=== PATIENT | male | born 1975 | race Caucasian/White ===

== ENCOUNTER 2019-03-09 10:34 | Emergency (ER) | payer SELFPAY ==
[2019-03-09 10:39] VITALS: BP 139/84; PULSE 87; RESP 18; TEMP 36.8; O2SAT 99
--- NOTE | 2019-03-09 11:10 | W.ED.GENAD ---
Discharge Plan Disposition Patient Disposition: HOME Condition: Stable Discharge Details Chief Complaint: Abd Prob Clinical Impression: Peptic ulcer, Elevated lipase Primary Care Provider: None,None ED Provider: Mac Man Home Meds and New Rx's Prescriptions: New omeprazole 20 mg capsule,delayed release(DR/EC) 20 mg PO DAILY Qty: 30 RF: 0 Discharge Instructions Instructions: Peptic Ulcer (ED) Additional Instructions: Feel free to return to the emergency department for any new or worsening symptoms. Otherwise take medication as prescribed and follow-up with primary care provider for reassessment and any further testing as needed. Referrals: Primary Care Provider [Outside] (Primary care office will call you to arrange follow-up appointment) Discharge Data Discharge Date/Time-TO BE ENTERED AT DEPARTURE: 03/09/19 14:11 Medical Decision Making Patient presenting to the emergency department for chief complaint of abdominal pain. Patient states that he has had this intermittently for years and has had epigastric and periumbilical abdominal pain that seems to come and go. During episodes of flareup he states that he has pain approximately 30 minutes after eating, heartburn, and some esophageal irritation. Today he states his pain is mild at 4 out of 10. Patient denies any fever chills, weight loss, rectal bleeding. Physical exam shows mild tenderness to epigastrium otherwise negative Lind sign, no abdominal distention, normal active bowel sounds, no CVA tenderness and otherwise unremarkable exam. Plan to check labs including lipase. Review of labs show normal CBC, normal CMP except for mildly elevated glucose, and lipase of 781. Patient adamantly denies any alcohol intake but does state significant cigarette smoking and caffeine use. Given elevated lipase plan to do ultrasound imaging of the abdomen.. Review of preliminary registered respiratory technician report shows no abnormalities noted. Did discuss with patient possible CT imaging given elevated lipase but I do not think he has pancreatitis at this time. After shared decision-making was utilized in full discussion of possible reasons for elevated lipase patient stated that he would prefer to follow-up with primary care, have reassessment of his labs, or return for new or worsening symptoms. Given high suspicion for peptic ulcer disease given duration of symptoms and history I did place patient on omeprazole daily to see if this helps. Close return precautions were discussed with patient. Patient does not have primary care provider so he is placed upon care management list to arrange this appointment preferably in the next week. After discussion of diagnosis and plan of care patient has no further needs, questions, or concerns and states clear understanding to return to the emergency department for any worsening symptoms. HPI General Mode of arrival: ambulatory. Date/Time Provider Initiated Documentation: 03/09/19 10:39. Limitations to Documentation: no limitations. Information obtained by: patient and RN notes reviewed. History of Present Illness described as moderate, with intensity rated at 4. Quality is described as aching and sharp, and is localized to the abdomen (Epigastric and periumbilical). Patient started experiencing this year(s) (2) and it has been intermittent. No relieving factors improve symptom(s), Eating worsens symptoms . Patient did receive the following treatments prior to arrival, other (tums) Related Data Home Medications Medication Instructions Recorded Confirmed omeprazole 20 mg PO DAILY #30 cap 03/09/19 Previous Rx's Medication Instructions Recorded omeprazole 20 mg PO DAILY #30 cap 03/09/19 Allergies Allergy/AdvReac Type Severity Reaction Status Date / Time No Known Allergies Allergy Unverified 12/13/16 00:48 General Stated Complaint: Abd Prob FILIBERTO: 3 Review of Systems Constitutional Denies chills, Denies fever(s) and Denies poor appetite Cardiovascular Denies chest pain and Denies dyspnea Respiratory Denies dyspnea Gastrointestinal Reports as per HPI, Reports abdominal pain, Denies melena, Denies hematochezia, Denies change in bowel habits, Denies constipation, Reports heartburn, Denies diarrhea, Reports nausea and Reports vomiting (Occasional bile ) Genitourinary Denies hematuria, Denies difficulty urinating, Denies dysuria and Denies penile discharge Integumentary/Breasts Denies rash [facility] Surgical History History of appendectomy (Chronic) Social History Smoking/Tobacco Use Status: Current every day Tobacco Type: cigarettes Alcohol Intake: never Drug use: Daily Substance use type: marijuana Do you feel safe in your relationship?: No Exam Const General: cooperative Orientation: alert, awake and oriented x3 Resp Effort & Inspection: normal respiratory effort and able to speak in complete sentences Auscultation: clear to auscultation bilaterally Cardio Rate: regular rate Rhythm: regular rhythm Heart Sounds: S1 normal and S2 normal GI Palpation: soft, no hepatosplenomegaly, not firm, no guarding, no masses, no pulsatile masses, not rigid, no splenomegaly and tender in the epigastrum; not at McBurney's point, not periumbilically, Lind's sign negative, psoas sign negative, with no rebound tenderness and Rovsing's sign negative Auscultation: normal bowel sounds Back/Spine/Pelvis Back: no CVA tenderness Neuro General: alert, awake, oriented x3, gait normal and moves all extremities Course Vital Signs Temperature 36.8 C 03/09/19 10:39 Pulse 87 03/09/19 10:39 Respiratory Rate 18 03/09/19 10:39 Blood Pressure 139/84 03/09/19 10:39 Pulse Oximetry 99 03/09/19 10:39 Temperature 36.8 C 03/09/19 10:39 Temperature Source Skin 03/09/19 10:39 Pulse 87 03/09/19 10:39 Respiratory Rate 18 03/09/19 10:39 Respiratory Effort 03/09/19 10:42 Blood Pressure 139/84 03/09/19 10:39 Pulse Oximetry 99 03/09/19 10:39 Oxygen Delivery Method Room Air 03/09/19 10:39 Oxygen Flow Rate 0 03/09/19 10:39 Pain Level 4 03/09/19 10:39
--- NOTE | 2019-03-09 11:15 | ED.GENADUL_ITS ---
Discharge Plan Disposition Patient Disposition: HOME Condition: Stable Discharge Details Chief Complaint: Abd Prob Clinical Impression: Peptic ulcer, Elevated lipase Primary Care Provider: None,None ED Provider: Mac Man Home Meds and New Rx's Prescriptions: New omeprazole 20 mg capsule,delayed release(DR/EC) 20 mg PO DAILY Qty: 30 RF: 0 Discharge Instructions Instructions: Peptic Ulcer (ED) Additional Instructions: Feel free to return to the emergency department for any new or worsening symptoms. Otherwise take medication as prescribed and follow-up with primary care provider for reassessment and any further testing as needed. Referrals: Primary Care Provider [Outside] (Primary care office will call you to arrange follow-up appointment) Discharge Data Discharge Date/Time-TO BE ENTERED AT DEPARTURE: 03/09/19 14:11 Medical Decision Making Patient presenting to the emergency department for chief complaint of abdominal pain. Patient states that he has had this intermittently for years and has had epigastric and periumbilical abdominal pain that seems to come and go. During episodes of flareup he states that he has pain approximately 30 minutes after eating, heartburn, and some esophageal irritation. Today he states his pain is mild at 4 out of 10. Patient denies any fever chills, weight loss, rectal bleeding. Physical exam shows mild tenderness to epigastrium otherwise negative Lind sign, no abdominal distention, normal active bowel sounds, no CVA tenderness and otherwise unremarkable exam. Plan to check labs including lipase. Review of labs show normal CBC, normal CMP except for mildly elevated glucose, and lipase of 781. Patient adamantly denies any alcohol intake but does state significant cigarette smoking and caffeine use. Given elevated lipase plan to do ultrasound imaging of the abdomen.. Review of preliminary infrastructure technician report shows no abnormalities noted. Did discuss with patient possible CT imaging given elevated lipase but I do not think he has pancreatitis at this time. After shared decision-making was utilized in full discussion of possible reasons for elevated lipase patient stated that he would prefer to follow-up with primary care, have reassessment of his labs, or return for new or worsening symptoms. Given high suspicion for peptic ulcer disease given duration of symptoms and history I did place patient on omeprazole daily to see if this helps. Close return precautions were discussed with patient. Patient does not have primary care provider so he is placed upon care management list to arrange this appointment preferably in the next week. After discussion of diagnosis and plan of care patient has no further needs, questions, or concerns and states clear understanding to return to the emergency department for any worsening symptoms. HPI General Mode of arrival: ambulatory . Date/Time Provider Initiated Documentation: 03/09/19 10:39 . Limitations to Documentation: no limitations . Information obtained by: patient and RN notes reviewed . History of Present Illness described as moderate, with intensity rated at 4. Quality is described as aching and sharp, and is localized to the abdomen (Epigastric and periumbilical). Patient started experiencing this year(s) (2) and it has been intermittent. No relieving factors improve symptom(s), Eating worsens symptoms . Patient did receive the following treatments prior to arrival, other (tums) Related Data Home Medications Medication Instructions Recorded Confirmed omeprazole 20 mg PO DAILY #30 cap 03/09/19 Previous Rx's Medication Instructions Recorded omeprazole 20 mg PO DAILY #30 cap 03/09/19 Allergies Allergy/AdvReac Type Severity Reaction Status Date / Time No Known Allergies Allergy Unverified 12/13/16 00:48 General Stated Complaint: Abd Prob FILIBERTO: 3 Review of Systems Constitutional Denies chills, Denies fever(s) and Denies poor appetite Cardiovascular Denies chest pain and Denies dyspnea Respiratory Denies dyspnea Gastrointestinal Reports as per HPI, Reports abdominal pain, Denies melena, Denies hematochezia, Denies change in bowel habits, Denies constipation, Reports heartburn, Denies diarrhea, Reports nausea and Reports vomiting (Occasional bile ) Genitourinary Denies hematuria, Denies difficulty urinating, Denies dysuria and Denies penile discharge Integumentary/Breasts Denies rash [facility] Surgical History History of appendectomy (Chronic) Social History Smoking/Tobacco Use Status: Current every day Tobacco Type: cigarettes Alcohol Intake: never Drug use: Daily Substance use type: marijuana Do you feel safe in your relationship?: No Exam Const General: cooperative Orientation: alert, awake and oriented x3 Resp Effort & Inspection: normal respiratory effort and able to speak in complete sentences Auscultation: clear to auscultation bilaterally Cardio Rate: regular rate Rhythm: regular rhythm Heart Sounds: S1 normal and S2 normal GI Palpation: soft, no hepatosplenomegaly, not firm, no guarding, no masses, no pulsatile masses, not rigid, no splenomegaly and tender in the epigastrum; not at McBurney's point, not periumbilically, Lind's sign negative, psoas sign negative, with no rebound tenderness and Rovsing's sign negative Auscultation: normal bowel sounds Back/Spine/Pelvis Back: no CVA tenderness Neuro General: alert, awake, oriented x3, gait normal and moves all extremities Course Vital Signs Temperature 36.8 C 03/09/19 10:39 Pulse 87 03/09/19 10:39 Respiratory Rate 18 03/09/19 10:39 Blood Pressure 139/84 03/09/19 10:39 Pulse Oximetry 99 03/09/19 10:39 Temperature 36.8 C 03/09/19 10:39 Temperature Source Skin 03/09/19 10:39 Pulse 87 03/09/19 10:39 Respiratory Rate 18 03/09/19 10:39 Respiratory Effort 03/09/19 10:42 Blood Pressure 139/84 03/09/19 10:39 Pulse Oximetry 99 03/09/19 10:39 Oxygen Delivery Method Room Air 03/09/19 10:39 Oxygen Flow Rate 0 03/09/19 10:39 Pain Level 4 03/09/19 10:39
[2019-03-09 11:47] LABS: Abs Immature Grans 0.01 k/cumm (0.0-0.09); Absolute Basophil Count 0.05 k/cumm (0.0-0.2); Absolute Eosinophil Count 0.25 k/cumm (0.0-0.7); Absolute Lymphocyte Count 2.38 k/cumm (1.2-3.4); Absolute Monocyte Count 0.63 k/cumm (0.11-0.7); Absolute Neutrophil Count 5.31 k/cumm (1.2-6.7); Basophils % 0.6; Eosinophils % 2.9; HCT 48.3 % (40.0-50.0); HGB 16.6 g/dL (13.5-17.5); Immature Grans % 0.1; Lymphocytes % 27.6; Mean Corp. HGB Concentration 34.4 g/dL (32.0-36.0); Mean Corpuscular Hemoglobin 30.9 pg (27.0-33.0); Mean Corpuscular Volume 89.8 fL (80-95); Mean Platelet Volume 9.4 fL (8.0-11.0); Monocytes % 7.3; Neutrophils % 61.5; Platelet Count 275 x1000/uL (130-400); RBC 5.38 m/cumm (4.50-6.00); RBC Distribution Width 13.7 % (11.8-14.1); White Blood Cell Count 8.63 k/cumm (4.4-10.8)
[2019-03-09 12:11] LABS: ALT 49 U/L (12-78); AST 19 U/L (15-37); Albumin 3.9 g/dL (3.4-5.0); Alkaline Phosphatase 62 U/L (46-116); Anion Gap 6.8 mmol/L (3-11); BUN 13 mg/dL (7-18); Bilirubin, Total 0.4 mg/dL (0.2-1.0); CO2 30.2 mmol/L (21.0-32.0); CREATININE 0.96 mg/dL (0.70-1.30); Calcium 9.1 mg/dL (8.5-10.1); Chloride 102 mmol/L (98-107); Glucose 107 mg/dL (70-100); Lipase 781 U/L (73-393); Potassium 4.5 mmol/L (3.5-5.1); Sodium 139 mmol/L (136-145); Total Protein 7.5 g/dL (6.4-8.2)
--- NOTE | 2019-03-09 12:21 | DI.US_ITS ---
SYMPTOMS/DIAGNOSIS: EPIGASTRIC PAIN, ELEVATED LIPASE ABDOMINAL ULTRASOUND: The visualized liver parenchyma is normal in appearance. There is no evidence of cholelithiasis. The common bile duct is of normal diameter. The pancreas and spleen appear intact. No renal abnormality is seen. The abdominal aorta is of normal diameter. Normal appearance of IVC. CONCLUSION: Normal abdominal ultrasound.
[2019-03-09 13:32] VITALS: BP 131/83; PULSE 71; RESP 18; TEMP 36.8; O2SAT 100
== END 2019-03-09 14:11 | disposition home or self-care (01) ==
PROVIDERS: Emergency Provider Nurse Practitioner Family
DX: K27.3 Acute peptic ulcer, site unspecified, without hemorrhage or perforation (principal)
CPT/HCPCS: 36415; 80053; 83690; 99284; 76700; 85025

== ENCOUNTER 2021-05-29 14:54 | Outpatient (REF) | payer SELFPAY ==
[2021-05-31 12:11] LABS: COVID-19 RT-PCR UVMMC Result Negative (Negative)
== END 2021-05-29 14:55 | disposition home or self-care (01) ==
LOC: LBN 14:54
PROVIDERS: Visit Provider Physician Assistant Medical
DX: Z20.822 Contact with and (suspected) exposure to COVID-19 (principal); R05 Cough
CPT/HCPCS: U0003

== ENCOUNTER 2021-08-01 15:42 | Outpatient (REF) | payer SELFPAY ==
[2021-08-03 19:27] LABS: COVID-19 RT-PCR UVMMC Result Positive (Negative)
== END 2021-08-01 15:43 | disposition home or self-care (01) ==
LOC: LBN 15:42
PROVIDERS: Visit Provider Physician Assistant Medical
DX: Z20.822 Contact with and (suspected) exposure to COVID-19 (principal)
CPT/HCPCS: U0003